=== PATIENT | female | born 1990 | race American Indian/Alaskan Native ===

== ENCOUNTER 2020-07-06 04:02 | Emergency (ER) | payer SELFPAY ==
[2020-07-06] MEDS ORDERED: ONDANSETRON 4 MG ODT TAB PO ONE (04:14)
[2020-07-06] MEDS ORDERED: FAMOTIDINE 20 MG TAB PO ONE (04:14)
[2020-07-06] MEDS ORDERED: ACETAMINOPHEN 500 MG TAB PO ONE (04:14)
[2020-07-06 04:52] LABS: Basophils % (Auto) 0.5 % (0.0-1.8); Eosinophils # (Auto) 0.1 K/mm3 (0.0-0.4); Eosinophils % (Auto) 2.5 % (0.0-4.3); Hematocrit 43.8 % (30.3-42.9); Hemoglobin 15.1 gm/dl (10.1-14.3); Lymphocytes # (Auto) 0.8 K/mm3 (1.2-5.4); Lymphocytes % (Auto) 21.7 % (13.4-35.0); Mean Corpuscular HGB Conc 34 % (30-34); Mean Corpuscular Volume 95 fl (79-97); Monocytes # (Auto) 0.5 K/mm3 (0.0-0.8); Monocytes % (Auto) 11.8 % (0.0-7.3); Platelet Count 188 K/mm3 (140-440); Red Blood Count 4.62 M/mm3 (3.65-5.03); Red Cell Distribution Width 14.5 % (13.2-15.2)
[2020-07-06 05:13] LABS: Alanine Aminotransferase 45 units/L (7-56); Albumin 4.7 g/dL (3.9-5); BUN/Creatinine Ratio 8; Blood Urea Nitrogen 6 mg/dL (7-17); Calcium 9.4 mg/dL (8.4-10.2); Hemolysis Index 11
--- NOTE | 2020-07-06 05:17 | XRay Report ---
CHEST 1 VIEW 5:03 AM INDICATION / CLINICAL INFORMATION: Cough. COMPARISON: None available. FINDINGS: SUPPORT DEVICES: None. HEART / MEDIASTINUM: The heart size and pulmonary vasculature are normal. LUNGS / PLEURA: No significant pulmonary or pleural abnormality. No pneumothorax. ADDITIONAL FINDINGS: No significant additional findings. IMPRESSION: No acute findings. Signer Name: Turner Weathers MD Signed: 07/06/2020 5:13 AM Workstation Name: [id number]
[2020-07-06] MEDS ORDERED: POTASSIUM CHLORIDE ER 20 MEQ TAB PO ONE (05:40)
--- NOTE | 2020-07-06 05:57 | Emergency Department Report ---
ED General Adult HPI - General Chief complaint: Earache Stated complaint: RINGING EARS, POSS ALCOHOL POISONING PUI?: No Source: patient Mode of arrival: Ambulatory Limitations: No Limitations - History of Present Illness Initial comments: Patient is a 29-year-old -[place] female with no past medical history who presents to the ED with complaint of acute onset persistent diffuse body aches and pains, persistent dry cough, nausea and bilateral ear pain for the last 1 week. Patient states that she has also been drinking a lot of alcohol in the last 1 week because of a familial stress. Patient states that her symptoms got worse in the last 3 days especially the last 12 hours such that she has not been able to sleep and is worried that she may have been experiencing alcohol poisoning. Patient denies abdominal pain, diarrhea, vomiting, chest pain, shortness of breath, dizziness, syncope, sore throat, fever, chills, dysuria, urinary frequency and urgency, vaginal bleeding or vaginal discharge. MD Complaint: Bilateral ear pain and ringing; nausea and cough -: Sudden, week(s) (1) Location: chest Radiation: non-radiation Severity scale (0 -10): 0 Consistency: constant Improves with: none Worsens with: none Associated Symptoms: denies other symptoms, cough, loss of appetite, malaise. denies: confusion, chest pain, diaphoresis, fever/chills, headaches, nausea/vomiting, rash, seizure, shortness of breath, syncope, weakness, other Treatments Prior to Arrival: none - Related Data Previous Rx's Medication Instructions Recorded Last Taken Type Amoxicillin/Potassium Clav 1 each PO Q12H #20 tablet 07/06/20 Unknown Rx [Augmentin 875-125 Tablet] Benzonatate [Tessalon Perles] 100 mg PO Q8HR #30 capsule 07/06/20 Unknown Rx Famotidine [Pepcid] 20 mg PO BID #60 tablet 07/06/20 Unknown Rx Ibuprofen [Motrin] 800 mg PO Q8HR PRN #30 tablet 07/06/20 Unknown Rx Ondansetron [Zofran Odt] 4 mg PO Q6HR PRN #20 tab.rapdis 07/06/20 Unknown Rx Allergies Allergy/AdvReac Type Severity Reaction Status Date / Time No Known Allergies Allergy Unverified 07/06/20 04:22 ED Review of Systems ROS: Stated complaint: RINGING EARS, POSS ALCOHOL POISONING Other details as noted in HPI Constitutional: denies: chills, fever Eyes: denies: eye pain, eye discharge, vision change ENT: ear pain (bilateral), congestion. denies: throat pain Respiratory: cough. denies: shortness of breath, wheezing Cardiovascular: denies: chest pain, palpitations Endocrine: no symptoms reported Gastrointestinal: nausea. denies: abdominal pain, vomiting, diarrhea Genitourinary: denies: urgency, dysuria, discharge Musculoskeletal: arthralgia, myalgia. denies: back pain, joint swelling Skin: denies: rash, lesions Neurological: denies: headache, weakness, paresthesias Psychiatric: denies: anxiety, depression Hematological/Lymphatic: denies: easy bleeding, easy bruising ED Past Medical Hx - Past Medical History Previous Medical History?: Yes Hx Asthma: Yes - Surgical History Past Surgical History?: No - Social History Smoking Status: Current Every Day Smoker Substance Use Type: Alcohol - Medications Home Medications: Home Medications Medication Instructions Recorded Confirmed Last Taken Type Amoxicillin/Potassium Clav 1 each PO Q12H #20 tablet 07/06/20 Unknown Rx [Augmentin 875-125 Tablet] Benzonatate [Tessalon Perles] 100 mg PO Q8HR #30 capsule 07/06/20 Unknown Rx Famotidine [Pepcid] 20 mg PO BID #60 tablet 07/06/20 Unknown Rx Ibuprofen [Motrin] 800 mg PO Q8HR PRN #30 tablet 07/06/20 Unknown Rx Ondansetron [Zofran Odt] 4 mg PO Q6HR PRN #20 tab.rapdis 07/06/20 Unknown Rx ED Physical Exam - General Limitations: No Limitations General appearance: alert, in no apparent distress - Head Head exam: Present: atraumatic, normocephalic, normal inspection - Eye Eye exam: Present: normal appearance, PERRL, EOMI - ENT ENT exam: Present: normal exam, normal orophraynx, mucous membranes moist, TM's normal bilaterally, normal external ear exam - Neck Neck exam: Present: normal inspection, full ROM - Respiratory Respiratory exam: Present: normal lung sounds bilaterally. Absent: respiratory distress, wheezes, rales, rhonchi, chest wall tenderness, accessory muscle use, decreased breath sounds, prolonged expiratory - Cardiovascular Cardiovascular Exam: Present: normal rhythm, tachycardia, normal heart sounds. Absent: systolic murmur, diastolic murmur, rubs, gallop - GI/Abdominal GI/Abdominal exam: Present: soft, normal bowel sounds. Absent: distended, tenderness, rebound, hyperactive bowel sounds, hypoactive bowel sounds - Extremities Exam Extremities exam: Present: normal inspection, full ROM, normal capillary refill - Back Exam Back exam: Present: normal inspection, full ROM. Absent: tenderness, CVA tenderness (R), CVA tenderness (L), muscle spasm, paraspinal tenderness - Neurological Exam Neurological exam: Present: alert, oriented X3, CN II-XII intact, normal gait, reflexes normal - Psychiatric Psychiatric exam: Present: normal affect, normal mood, anxious - Skin Skin exam: Present: warm, dry, intact, normal color. Absent: rash ED Course Vital Signs 07/06/20 04:08 Temperature 98.0 F Pulse Rate 115 H Respiratory 18 Rate Blood Pressure 149/112 O2 Sat by Pulse 98 Oximetry ED Medical Decision Making - Lab Data Result diagrams: 07/06/20 04:23 07/06/20 04:23 - Radiology Data Radiology results: report reviewed, image reviewed Findings [facility] [address] [place] [address] XRay Report Signed Patient: JESSENIA LIND MR#: [id number] : 1990 Acct:[id number] Age/Sex: 29 / F ADM Date: 07/06/20 Loc: ED Attending Dr: Ordering Physician: MICHELLE PETERSON Date of Service: 07/06/20 Procedure(s): XR chest 1V ap Accession Number(s): [id number] cc: MICHELLE PETERSON Fluoro Time In Minutes: CHEST 1 VIEW 5:03 AM INDICATION / CLINICAL INFORMATION: Cough. COMPARISON: None available. FINDINGS: SUPPORT DEVICES: None. HEART / MEDIASTINUM: The heart size and pulmonary vasculature are normal. LUNGS / PLEURA: No significant pulmonary or pleural abnormality. No pneumothorax. ADDITIONAL FINDINGS: No significant additional findings. IMPRESSION: No acute findings. Signer Name: Turner Weathers MD Signed: 07/06/2020 5:13 AM Workstation Name: [id number] Transcribed By: RT Dictated By: Turner Weathers MD Electronically Authenticated By: Turner Weathers MD Signed Date/Time: 07/06/20 0513 DD/ 0509 TD/TT: - Medical Decision Making This is a 29-year-old -[place] female with no past medical history who presents to the ED with complaint of acute onset persistent diffuse body aches and pains, persistent dry cough, nausea and bilateral ear pain for the last 1 week. Patient states that she has also been drinking a lot of alcohol in the last 1 week because of a familial stress. Patient states that her symptoms got worse in the last 3 days especially the last 12 hours such that she has not been able to sleep and is worried that she may have been experiencing alcohol poisoning. In the ED, patient is alert and oriented x3 and is not in any distress. Patient is hemodynamically stable but appears anxious and uncomfortable in the physical exam. Lab test results were reviewed and are all nonactionable except for hypokalemia of 3.0 mmol/L. The rest of the lab test results are nonactionable. Chest x-ray shows no acute cardiopulmonary abnormalities or pneumonitis. Patient was treated for pain in the ED and also given antacids and antiemetics. Patient also received potassium chloride 40 mEq p.o. x1. On reevaluation, patient's pain is well controlled medications. Patient felt better, and patient was discharged home on medications and advised to follow-up with her primary care physician in 5 to 7 days for reevaluation or return to the ED immediately if symptoms get worse. - Differential Diagnosis bronchitis; viral syndrome; Viral URI; otitis media Critical care attestation.: If time is entered above; I have spent that time in minutes in the direct care of this critically ill patient, excluding procedure time. ED Disposition Clinical Impression: Acute otitis media with effusion of right ear, Acute upper respiratory infection, Viral upper respiratory tract infection with cough Acute bronchitis Qualifiers: Bronchitis organism: other organism Qualified Code(s): J20.8 - Acute bronchitis due to other specified organisms Disposition: DC-01 TO HOME OR SELFCARE Is pt being admited?: No Does the pt Need Aspirin: No Condition: Stable Instructions: Otitis Media, Adult, [id number], Acute Bronchitis, Adult, [id number], Upper Respiratory Infection, Adult, [id number], Acute Bronchitis (ED) Additional Instructions: All lab test results were reviewed and are all nonactionable. Chest x-ray shows no acute cardiopulmonary abnormalities or pneumonitis. Therefore take medications with food, drink plenty of fluids and follow-up with your primary care physician in 3 to 5 days for reevaluation. Return to the ED immediately if symptoms get worse. Prescriptions: Amoxicillin/Potassium Clav [Augmentin 875-125 Tablet] 1 each PO Q12H #20 tablet Ibuprofen [Motrin] 800 mg PO Q8HR PRN #30 tablet PRN Reason: Pain , Severe (7-10) Famotidine [Pepcid] 20 mg PO BID #60 tablet Benzonatate [Tessalon Perles] 100 mg PO Q8HR #30 capsule Ondansetron [Zofran Odt] 4 mg PO Q6HR PRN #20 tab.rapdis PRN Reason: Nausea Referrals: [facility] [Provider Group] - 7-10 days Time of Disposition: 06:00 Print Language: AZERBAIJANI
[2020-07-06 06:28] LABS: Bacteria,Urine 1+ /HPF (Negative); Bilirubin,Urine NEG (Negative); Blood,Urine NEG (Negative); Color,Urine Straw (Yellow); Mucus,Urine FEW /HPF; Protein,Urine <15 mg/dL mg/dL (Negative); RBC,Urine < 1.0 /HPF (0.0-6.0); Urobilinogen,Urine < 2.0 mg/dL (<2.0)
[2020-07-06 06:58] VITALS: BP 133/101
== END 2020-07-06 07:02 | disposition home or self-care (01) ==
LOC: EDSEX → ED 04:02
DX: J20.8 Acute bronchitis due to other specified organisms (principal); H65.191 Other acute nonsuppurative otitis media, right ear; J06.9 Acute upper respiratory infection, unspecified; J45.909 Unspecified asthma, uncomplicated; F17.200 Nicotine dependence, unspecified, uncomplicated; Z79.899 Other long term (current) drug therapy
CPT/HCPCS: 36415; 71045; 80053; 81001; 84703; 85025; Q0162